=== PATIENT | male | born 1985 | race Hispanic/Latino ===

== ENCOUNTER → 2021-02-05 | Outpatient (CLI) | payer OTHER | END | disposition home or self-care (01) | LOC: RAH 07:50 | PROVIDERS: ATTEND Internal Medicine | DX: K76.0 Fatty (change of) liver, not elsewhere classified (principal); R16.0 Hepatomegaly, not elsewhere classified; B16.9 Acute hepatitis B without delta-agent and without hepatic coma | CPT/HCPCS: 76705 ==